=== PATIENT | male | born 1950 | race Caucasian/White ===

== ENCOUNTER 2021-01-09 09:50 | Outpatient (RCR) | payer SELFPAY | END 2021-01-10 23:59 | LOC: NS 09:50 | DX: Z71.3 Dietary counseling and surveillance (principal) | CPT/HCPCS: 97802 ==

== ENCOUNTER 2021-01-24 11:34 | Outpatient (RCR) | payer SELFPAY | END 2021-02-10 23:59 | LOC: NS 11:34 | DX: Z71.3 Dietary counseling and surveillance (principal); E66.9 Obesity, unspecified | CPT/HCPCS: 97803 ==

== ENCOUNTER 2021-03-08 11:00 | Outpatient (RCR) | payer SELFPAY | END 2021-03-13 23:59 | LOC: NS 11:00 | DX: Z71.3 Dietary counseling and surveillance (principal) | CPT/HCPCS: 97803 ==

== ENCOUNTER 2021-03-29 11:18 | Outpatient (RCR) | payer SELFPAY | END 2021-04-10 23:59 | LOC: NS 11:18 | DX: Z71.3 Dietary counseling and surveillance (principal); Z68.33 Body mass index [BMI] 33.0-33.9, adult | CPT/HCPCS: 97803 ==

== ENCOUNTER 2021-05-01 08:30 | Outpatient (RCR) | payer SELFPAY | END 2021-05-11 23:59 | LOC: NS 08:30 | DX: Z71.3 Dietary counseling and surveillance (principal); Z68.32 Body mass index [BMI] 32.0-32.9, adult | CPT/HCPCS: 97803 ==

== ENCOUNTER 2021-05-30 08:30 | Outpatient (RCR) | payer SELFPAY | END 2021-05-30 09:30 | disposition home or self-care (01) | LOC: NS 08:30 | DX: Z71.3 Dietary counseling and surveillance (principal) | CPT/HCPCS: 97803 ==